=== PATIENT | male | born 1980 | race Caucasian/White ===

== ENCOUNTER 2017-05-10 10:40 | Emergency (ER) | payer BC | END 2017-05-10 12:54 | disposition home or self-care (01) | LOC: ER 12:54 | DX: J20.8 Acute bronchitis due to other specified organisms (principal); B97.89 Other viral agents as the cause of diseases classified elsewhere; J39.9 Disease of upper respiratory tract, unspecified; F41.9 Anxiety disorder, unspecified | CPT/HCPCS: 71046; 99284-25 ==